=== PATIENT | female | born 1990 | race Caucasian/White ===

== ENCOUNTER 2019-07-18 22:46 | Observation (INO) ==
--- NOTE | 2019-07-18 23:07 | PROVIDER DOCUMENTATION ---
This chart was entered by Diana Bernard Scribe, acting as scribe for Freda Byrne CRNP. HPI-Abdominal Pain/GI Problem - General Chief Complaint: Abdominal Pain Stated Complaint: SIDE PAIN/N Time Seen by Provider: 07/18/19 22:47 Source: patient Allergies/Adverse Reactions: Patient Allergies Allergy/AdvReac Type Severity Reaction Status Date / Time No Known Allergies Allergy Verified 07/18/19 23:01 Home Medications: Home Medication List Medication Instructions Recorded Confirmed Last Taken Type NK [No Home Medications] 07/18/19 07/18/19 Unknown History - History of Present Illness-ABD Nature of Presenting Problems: pt is a 28 yr old female presenting with complaint of RLQ pain, onset last ni ght. pt also reports nausea and diarrhea, denies vomiting. no fever/chills, no other complaints. pt admits she is Abdominal Pain Onset Location: reports: RLQ Pain Radiation: reports: no radiation Quality of Pain: reports: sharp Severity in ED: reports: moderate, severe Onset/Duration: reports: last night Timing: reports: still present Activities at Onset: reports: rest Exposure to sick contacts?: No Modifying Factors: improves with: palpation (increases pain) Associated Symptoms: reports: diarrhea, nausea. denies: constipation, fever/chills, genitourinary problems, vomiting Last BM: this evening Dark Stools Present?: reports: none noticed Rectal Bleeding: reports: none Rectal Pain: reports: none Emesis Description: reports: none Bruising or Bleeding Gums?: No Similar Symptoms Previously?: No Recently seen or treated by another doctor?: No Review of Systems - Adult - REVIEW OF SYSTEMS - ADULT Constitutional: denies: chills, fever Eyes: reports: no symptoms reported Ears, Nose, Mouth & Throat: reports: no symptoms reported Cardiovascular: reports: no symptoms reported Respiratory: reports: no symptoms reported Gastrointestinal: reports: abdominal pain, diarrhea, nausea. denies: vomiting Genitourinary: denies: dysuria, frequency, flank pain Musculoskeletal: denies: back pain, muscle aches Integumentary: reports: no symptoms reported Neurological: denies: dizziness/vertigo, headache/migraines Psychiatric: reports: no symptoms reported Endocrine: reports: no symptoms reported Hematologic/Lymphatic: reports: no symptoms reported Allergic/Immunologic: reports: no symptoms reported All Other Systems: Reviewed and Negative Past History - Adult - PAST MEDICAL HISTORY-ADULT Review of Records: reports: Nursing Assessment Review, Medications Reviewed, Social history reviewed & non-contributory. Major Childhood Illnesses: reports: denies history Cardiovascular: reports: denies history Respiratory: reports: denies history Gastrointestinal: reports: denies history Obstetrical/Gynecological: reports: denies history Genitourinary: reports: denies history Musculoskeletal: reports: denies history Neurological: reports: denies history Endocrine/Immune: reports: denies history Other Conditions: reports: denies history - IMMUNIZATION STATUS Childhood Immunizations: See Nurse Assessment Flu Vaccine: See Nurse Assessment - FAMILY HISTORY Family History: reviewed, not pertinent - SOCIAL HISTORY Smoking: cigarettes Provider spent 3-5 mins advising pt. on dangers of tobacco.: Discussed manners to quit use, and f/u contacts for add'l counseling. Substance Use: alcohol Alcohol Use Frequency: occasionally Living Situation: family Physical Exam-General - PHYSICAL EXAM-ADULT Initial Vital Signs Reviewed: Yes - CONSTITUTIONAL General Appearance: alert, no apparent distress, obese - EYES Eyes: PERRL/EOMI - HEAD, EARS, NOSE, MOUTH & THROAT HENMT: normocephalic/atraumatic, moist mucous membranes, normal ENT inspection - NECK Neck: non-tender, full range of motion, supple, normal inspection - RESPIRATORY Respiratory: chest non-tender, lungs clear, normal breath sounds, no respiratory distress, no accessory muscle use - CARDIOVASCULAR Cardiovascular: normal peripheral pulses, no edema, tachycardia - GASTROINTESTINAL (ABDOMEN) Abdominal Exam: abnormal bowel sounds (hypoactive), tenderness (RLQ), McBurney's point tenderness, obturator sign, psoas sign. negative: rebound - LYMPHATIC Lymphatic: no adenopathy - MUSCULOSKELETAL Back Exam: normal inspection, no CVA tenderness, no vertebral tenderness Extremity: normal range of motion, non-tender, normal gait, normal inspection - SKIN Integumentary: normal color, normal turgor, warm/dry - NEUROLOGIC Neurologic: grossly normal - PSYCHIATRIC Psych/Mental Status: normal mood/affect Progress - PLAN OF CARE/RESULTS Progress/Plan/Lab Results: Vital Signs - 8 hr 07/18/19 22:50 Temperature 98.2 F Pulse Rate 123 H Respiratory Rate 15 Blood Pressure 124/73 O2 Sat by Pulse Oximetry 100 Orders Category Date Time Status ED: Urine Bedside ORDERED Care 07/18/19 22:48 Active Saline Loc NOW Care 07/18/19 22:56 Active CBC WITH ELECTRONIC DIFF [HEME] Stat Lab 07/18/19 22:56 Uncollected COMPREHENSIVE METABOLIC PANEL [CHEM] Stat Lab 07/18/19 22:56 Uncollected LIPASE [CHEM] Stat Lab 07/18/19 22:56 Uncollected URINALYSIS W/POSS RFLX CULT [URINALYSIS] Stat Lab 07/18/19 22:48 Uncollected Result Diagrams: 07/18/19 23:12 07/18/19 23:12 - CT/MRI 1 CT Study: Abdomen, Pelvis CT Results: Acute Appendicitis per [facility] - CONSULTS/PCP/HOSPITALIST Notification #1 *Consult/PCP/Hospitalist*: Dr. Benites Time Discussed: 01:23 Reason/Comments: Consult Consult Disposition: Admit (Admit to hospitilist and he will see in the morning.) #2 Consult: Dr. Harris Time Discussed: 01:38 Reason/Comments: Admission Consult Disposition: Will see in ED, Admit Departure - Departure Date of Disposition Decision: 07/19/19 Time of Disposition Decision: 01:24 DIAGNOSIS: Acute appendicitis Qualifiers: Acute appendicitis type: with localized peritonitis Appendicitis gangrene presence: unspecified whether gangrene present Appendicitis perforation pre sence: without perforation Appendicitis abscess presence: unspecified whether abscess present Qualified Code(s): K35.30 - Acute appendicitis with localized peritonitis, without perforation or gangrene Disposition: ADMITTED INPATIENT 09 Certified Medical Emergency: Emergent Condition: Stable Referrals and Follow-Ups: None,PCP [Primary Care Provider] - - Critical Care Note This patient required my direct & personal management of CC.: No Attestation - Physician/ LEE Attestation Patient care was provided by Advanced Practice Provider:: Yes Advanced Practice Provider:: Freda Byrne Advanced Practice Provider documentation review:: The Mid-level provider documentation, treatment plan and medical decision making was reviewed by the physician who agrees with all treatment and medical decision making by the MLP. The physician spent face to face time with patient:: No Advanced Practice Provider documentation review:: Supervising physician onsite and consulted in the evaluation and care of this patient. The physician did not have a face to face encounter with the patient. This chart was documented by the indicated patrick, (Diana Bernard, [employer]) and accurately reflects the services I performed and decisions made by me, Freda Byrne CRNP, as attested by the provider's signature.
[2019-07-18 23:28] LABS: BASO# 0.02 X1000 (0.0-0.2); BASO% 0.1 % (0.0-0.8); EOS% 0.7 % (0.0-10.0); HEMATOCRIT 46.3 % (37.0-47.0); HEMOGLOBIN 15.4 g/dL (12.0-16.0); IMM GRAN# 0.04 X1000 (0.0-0.04); IMM GRAN% 0.3 % (0.0-0.5); LYMPH# 2.63 X1000 (1.2-3.4); LYMPH% 17.5 % (20.5-51.1); MCH 32.4 PG (27-31); MCHC 33.3 g/dL (33-37); MCV 97.3 FL (81-99); MONO# 0.96 X1000 (0.11-0.59); MONO% 6.4 % (1.7-9.3); MPV 9.4 FL (7.4-10.4); NEUT# 11.29 X1000 (1.4-6.5); PLT 348 X1000 (130-400); RBC 4.76 XMIL (4.2-5.4); RDW 12.6 % (11.5-14.5); WBC 15.04 X1000 (4.8-10.8)
[2019-07-18 23:53] LABS: AGAP 17; ALB/GLOB RATIO 1.5; ALBUMIN 4.7 g/dL (3.5-5.0); ALKALINE PHOSPHATASE 221 U/L (32-104); BUN 6 mg/dL (8-22); CHLORIDE 98 mmol/L (98-107); COSMO 281; CREATININE 0.9 mg/dL (0.5-0.9); ESTIMATED GFR > 60; GLUCOSE 135 mg/dL (70-104); GOT 37 U/L (10-30); GPT 121 U/L (10-36); LIPASE 18 U/L (13-60); POTASSIUM 3.7 mmol/L (3.5-5.1); SODIUM 141 mmol/L (136-145); TCO2 26 mmol/L (25-35); TOTAL BILIRUBIN 0.37 mg/dL (0.20-1.00); TOTAL PROTEIN 7.9 g/dL (6.3-8.3)
[2019-07-19 00:02] LABS: URINE SOURCE CLEAN CATCH
[2019-07-19 00:08] LABS: BILIRUBIN URINE NEGATIVE (NEGATIVE); BLOOD URINE NEGATIVE (NEGATIVE); COLOR YELLOW; GLUCOSE URINE NEGATIVE (NEGATIVE); KETONE URINE TRACE mg/dL (NEGATIVE); LEUKOCYTES URINE NEGATIVE (NEGATIVE); NITRITE URINE NEGATIVE (NEGATIVE); PROTEIN URINE TRACE mg/dL (NEGATIVE); TURBIDITY URINE HAZY (CLEAR); UR EPITHELIAL CELLS <10 /HPF (<10); URINE BACTERIA 1+ /HPF; URINE RBC <10 /HPF (<10); URINE WBC <10 /HPF (<10); UROBILINOGEN URINE 2 mg/dL (NORMAL)
[2019-07-19] MEDS ORDERED: ZOFRAN IV ONE (00:50)
[2019-07-19] MEDS ORDERED: ZOSYN 3.375 GM in NS 50 ML IV ONE ×2 (01:25→02:36)
[2019-07-19] MEDS ORDERED: NS 1,000 ML IV SCH (02:18)
[2019-07-19] MEDS ORDERED: TYLENOL PO PRN (02:18)
[2019-07-19] MEDS ORDERED: ZOFRAN IV PRN (02:18)
[2019-07-19] MEDS ORDERED: NS 1,000 ML IV ONE (02:21)
--- NOTE | 2019-07-19 03:21 | HISTORY AND PHYSICAL ---
PRIMARY CARE PROVIDER: She has no active primary care provider. REASON FOR ADMISSION: Two-day history of right lower quadrant pain and loose stools. HISTORY OF PRESENT ILLNESS: Ms. Radha Jesus is a 28-year-old woman who is 2 months with no overt medical problems. She stated that she was having intermittent sharp pain in the right lower quadrant, the pain is nonradiating with no specific aggravating or relieving factors. No fever or chills. He also developed simultaneous nonbloody loose stools about a total of 3. Denies any nausea or vomiting. No fever or chills as stated earlier. No genitourinary complaints. No cardiorespiratory complaints. No neurological complaints. She came into the ER at the behest of her . She initially thought she just had "gas." It was after they did her CAT scan that they informed that she had an appendicitis and she has been admitted. Dr. Benites was notified and will see the patient in the morning. ALLERGIES: None. MEDICATIONS: None. PAST SURGICAL HISTORY: D and C. FAMILY HISTORY: Nil. SOCIAL HISTORY: She is . She smokes a half a pack a day. No alcohol use or illicit drug use. LABORATORY WORK: White count is 15,000, hemoglobin and hematocrit is 15 and 46, platelets 348,000, BUN 6, creatinine 0.9 glucose 135, AST 37, ALT 121, alkaline phosphatase 221. Lipase is normal. Urine has trace protein, trace ketones. CT scan report preliminary report shows acute appendicitis. PHYSICAL EXAMINATION: VITAL SIGNS: Blood pressure 124/70, heart rate 122, respiratory rate is 15, temperature is 98.2. GENERAL: She is a young white female not in acute distress. AAO x3. Normal mood and affect. HEENT: Head: Normocephalic, atraumatic. Eyes: JAYNE, EOMI. Anicteric. Oral exam no exudate or erythema. No cyanosis. NECK: Supple. No JVD or carotid bruit. No thyromegaly. CHEST: Clear when auscultated with good air entry to both lung mcintyre. CARDIOVASCULAR: First and 2nd heart sounds heard. No gallops, murmurs or rubs. Rhythm is regular and tachycardic. ABDOMEN: Full, soft, with right lower quadrant tenderness and McBurney point tenderness. No peritoneal signs. Bowel sounds normal. RECTAL: Deferred. EXTREMITIES: No edema, clubbing or cyanosis. Good distal pulse volumes, regular, symmetrical. NEUROLOGIC: No gross focal deficits. SKIN: Intact with no breakdown, lesions or erythema. MUSCULOSKELETAL: Examination is grossly normal. ASSESSMENT: 1. Acute appendicitis. 2. Elevated transaminases. PLAN: The patient will be admitted and has been given empiric antibiotics in the ER. Dr. Benites will be notified of the patient's arrival to the floor and further orders per him. May suggest possible abdominal sonogram if transaminases are still elevated in the next 24 hours. Also consider a hepatitis profile. For now I do think the elevated transaminases could be indirectly related to appendicitis. cc: Mis Harris MD MTDD
[2019-07-19] MEDS ORDERED: MORPHINE IV PRN (05:43)
[2019-07-19] MEDS: ZOSYN 3.375 GM in NS 50 ML IV SCH ×2 (06:01→13:40)
--- NOTE | 2019-07-19 06:26 | Diag Imaging Result Doc PS360 ---
CT ABD/PELVIS W/IV CONT ONLY - 07/19/2019 INDICATION: RLQ pain COMPARISON: None FINDINGS: The lung bases are clear and the heart size is normal. The liver, gallbladder, spleen, pancreas, adrenals, and kidneys are normal. The vermiform appendix is dilated, measuring 10.6 mm. There is significant surrounding inflammatory stranding. No free air or drainable fluid collection. There is a large, simple right ovarian cyst. This measures 5.2 x 4.5 cm. Urinary bladder and rectum are normal. Bones are intact and well mineralized. IMPRESSION: 1. Acute appendicitis. 2. Right ovarian cyst. 3. This report was discussed with Ari Byrne on 07/19/2019 at 1:21 AM and was readback. This exam was performed using automated exposure control, adjustment of mA or kV according to patient size, and/or use of iterative reconstruction technique Electronically signed by Jose Winslow 07/19/2019 6:24 AM
--- NOTE | 2019-07-19 06:28 | GENERAL SURGERY CONSULTATION ---
DATE: 07/19/2019 REQUESTING PHYSICIAN: Emergency Department consult concerning appendicitis. HISTORY OF PRESENT ILLNESS: A 28-year-old female who is 2 months who presented with having intermittent sharp right lower quadrant pain that is nonradiating without any kind of worsening or aggravating factor. She was seen in the emergency department after being encouraged by her to go. It was found that she had appendicitis on CT scan. She has been admitted and started on IV antibiotics and intravenous pain medicine. I was asked to weigh an opinion. Patient is still reporting some right lower quadrant pain. PAST MEDICAL HISTORY: None. PAST SURGICAL HISTORY: D and C. FAMILY HISTORY: Reviewed with patient, noncontributory. SOCIAL HISTORY: . Current smoker. ALLERGIES: None. HOME MEDICATIONS: Reviewed. REVIEW OF SYSTEMS: A full 10 point review of systems obtained, negative except as specified in HPI. PHYSICAL EXAMINATION: Vital Signs: Patient is currently afebrile. Heart rate is tachycardic in the 120s. Blood pressure is stable. General: No acute distress. HEENT: Normocephalic, atraumatic. Pupils equal, round, and reactive to light. Mucous membranes moist. Oropharynx benign. Neck: Supple. Trachea midline. Cardiovascular: There is some mild tachycardia. Lungs: Grossly clear. Abdomen: Soft. Tender to palpation in the right lower quadrant. Positive McBurney's point. Extremities: Moves all extremities. Neurologic: Grossly intact. Skin: No signs of jaundice. Vascular: All extremities perfused. LABORATORY: White blood cell count is 15. Remainder of labs reviewed. Of note, AST, ALT, and alkaline phosphatase are slightly elevated, but her bilirubin is normal. CT scan independently reviewed and radiology report reviewed. Official report that shows appendicitis. Gallbladder does not look abnormal. She does have some fatty liver disease. ASSESSMENT AND PLAN: A 28-year-old female with appendicitis. Appendicitis. At this time, we will plan on surgical intervention today. Discussed with her the risks, benefits, and alternatives. Risks including, but not limited to bleeding, infection, risk of anastomotic breakdown, risk of injury to other organs discussed, risk of anesthesia discussed. All questions answered. We will plan on doing this today. cc: Keshav Benites MD
[2019-07-19] MEDS ORDERED: NORCURON ONE (08:39)
[2019-07-19] MEDS ORDERED: DIPRIVAN 1% ONE (08:39)
[2019-07-19] MEDS ORDERED: XYLOCAINE-MPF 2% ONE (08:39)
[2019-07-19] MEDS ORDERED: QUELICIN (DOSE) ONE (08:39)
[2019-07-19] MEDS ORDERED: VERSED ONE (08:39)
[2019-07-19] MEDS ORDERED: FENTANYL ONE (08:39)
[2019-07-19] MEDS ORDERED: SODIUM CHLORIDE 0.9% 10 ML ONE (08:39)
[2019-07-19] MEDS ORDERED: LR 1,000 ML ONE (09:23)
[2019-07-19] MEDS ORDERED: SENSORCAINE 0.25%/EPI 1:200,000 ONE (09:23)
[2019-07-19] MEDS ORDERED: DECADRON ONE (10:18)
[2019-07-19] MEDS ORDERED: ZOFRAN ONE (10:18)
[2019-07-19] MEDS ORDERED: TORADOL ONE (10:18)
[2019-07-19] MEDS ORDERED: NEOSTIGMINE ONE (10:30)
[2019-07-19] MEDS ORDERED: ROBINUL ONE (10:30)
[2019-07-19] MEDS ORDERED: PHENERGAN ONE (11:23)
[2019-07-19] MEDS: DILAUDID ONE ×2 (11:26→11:29)
--- NOTE | 2019-07-19 11:30 | OPERATIVE NOTE ---
PROCEDURE DATE: 07/19/2019 PREOPERATIVE DIAGNOSIS: Appendicitis. POSTOPERATIVE DIAGNOSES: 1. Appendicitis. 2. Right ovarian cyst. PROCEDURE: Laparoscopic appendectomy. SURGEON: Keshav Benites MD DOCTOR OF NAPRAPATHIC MEDICINE: None. ANESTHESIA: General endotracheal. INTRAOPERATIVE FINDINGS: Appendicitis. COMPLICATIONS: None at time of dictation. ESTIMATED BLOOD LOSS: 10 mL. SPECIMEN REMOVED: Appendix. BRIEF HISTORY: A 28-year-old female with symptoms consistent with appendicitis. She wanted to have it removed. The risks, benefits, and alternatives were discussed. All questions were answered. PROCEDURE IN DETAIL: After informed consent was obtained, the patient was brought to the operative theatre, transferred to the operating room table, and placed in the supine position. General endotracheal anesthesia was then performed without complication. A formal time out was then performed confirming the patient, date, and procedure. All were in agreement. At that time, attention was given to the abdomen. An infraumbilical incision was made, through which using Optiview technique we inserted a 12 mm trocar, connected it to insufflation, and pneumoperitoneum was achieved. Under direct visualization, we placed 2 more trocars, 1 in the left lower quadrant and 1 in the right upper quadrant. Using these, the appendix was identified. It was inflamed consistent with appendicitis. She did have a right ovarian cyst which looked enlarged. We elevated the appendix. It was somewhat retroperitoneal, which we took down with the LigaSure. We then transected the mesoappendix with the LigaSure all the way to the base of the cecum and the base of the appendix. We fired a stapler across the base of the appendix with good results. There was no drainage of stool, no drainage of succus, and no active bleeding. At the completion of the case, we brought the appendix out through an Endo Catch through the infraumbilical incision. We then closed the infraumbilical incision with 0 Vicryl on a Armin-Walker device. We then reexamined the abdomen. No bleeding. No drainage of succus and no stool was noted. We then removed all trocars, disconnected insufflation. Pneumoperitoneum was released. All skin incisions closed with 4-0 Monocryl. The patient tolerated the procedure well. cc: Keshav Benites MD
[2019-07-19 12:36] VITALS: BP 106/52
[2019-07-19] MEDS ORDERED: NORCO-10 PO ONE (13:49)
--- NOTE | 2019-07-20 17:00 | DISCHARGE SUMMARY ---
ADMISSION DATE: 07/18/2019 DISCHARGE DATE: 07/19/2019 DISPOSITION: Home. FOLLOWUP: Dr. Benites INVASIVE PROCEDURES DONE DURING ADMISSION: Laparoscopic appendectomy was done by Dr. Benites. ADMISSION DIAGNOSES: 1. Acute appendicitis. 2. Elevated transaminases. DIAGNOSIS AT THE TIME OF DISCHARGE: 1. Acute appendicitis status post lap laparoscopic appendectomy. 2. Transaminitis concerning for steatohepatitis. 3. Leukocytosis secondary to appendicitis. 4. Obesity with BMI of 31.0. 5. Right ovarian cyst. The patient has been advised to follow up with her Ob-Assistant Executive Housekeeper. DISCHARGE MEDICATIONS: 1. Williams 10 1 tablet q. 6 p.r.n. 2. Zofran 4 mg p.o. q. 6 p.r.n. CONSULTATION DURING THIS ADMISSION: Surgery was consulted. Patient was seen by Dr. Benites. PRESENTING COMPLAINT: Two-day history of right lower quadrant pain. HISTORY OF PRESENTING COMPLAINT: Ms Jesus is a 28-year-old female who is about 2 months , came to the emergency room because of epigastric mid abdomen pain radiating to the right lower quadrant associated with nauseation and diarrhea. She thought this was probably gas. However, the pain did not get any better so she came to the emergency room where she was evaluated including a CT scan of the abdomen and pelvic which revealed acute appendicitis and also a right ovarian cyst. The patient was admitted for management. HOSPITAL COURSE: Ms Jesus was admitted to the medical floor, was seen by surgery. She underwent immediate laparoscopic appendectomy with Dr. Reyes. She did pretty well after the surgery, ate okay. Dr. Benites evaluated the patient, thinks that the patient is okay to be discharged. She is therefore being discharged in stable condition. She will be following up with Dr. Benites. DISCHARGE INSTRUCTIONS: All the discharge instructions were discussed with Ms. Jesus and the mother was at the bedside at the time of all the recommendations. TIME SPENT FOR DISCHARGE: 31 minutes. DISPOSITION: At the time of the discharge, the patient's vitals were stable with a blood pressure of 106/52, pulse of 68, respirations 20, temperature 98.6 degrees. Physical exam is unremarkable. FOLLOWUP: Ms. Jesus is also advised to follow up with her primary care doctor on the abnormal liver enzymes. Weight management has also been advised. cc: Pio Ordoñez MD
== END 2019-07-19 14:51 | disposition other institution (70) ==
LOC: ED 22:46 → 4N 07-19 05:08 → SUATTDRO 07-19 05:08 → INTOOBSV 07-19 05:08
PROVIDERS: ATTEND Internal Medicine